=== PATIENT | female | born 1995 | race Caucasian/White ===

== ENCOUNTER 2016-11-25 11:58 | Emergency (ER) | payer SELFPAY ==
[~2016-11-25] VITALS: Ht 167.6 cm; Wt 80.0 kg
[~2016-11-25 11:58] MED LIST: ALBU8.5H3 INH; ALBU8.5H5 IH; DICY10CA60 PO; DOCU-144 PO; FLUT1DIS23 INH; HYDR-3498 PO; HYDR-3720 PO; NITR-58 PO; ONDA4TAB35 PO; ONDA4TAB8 PO; PANT40TA3 PO; POLY17PO6 PO; RANI150T5 PO; [UNRECOGNIZED DRUG - OTHER] PO
[2016-11-25 12:04] VITALS: Ht 167.6 cm; Wt 80.0 kg
== END 2016-11-25 19:25 | disposition left against medical advice (07) ==
LOC: E/R 11:58
DX: Z53.21 Procedure and treatment not carried out due to patient leaving prior to being seen by health care provider (principal)